=== PATIENT | female | born 2000 | race Asian ===

== ENCOUNTER 2020-08-26 09:58 | Emergency (ER) | payer OTHER ==
[~2020-08-26] VITALS: Ht 157.5 cm; Wt 49.0 kg
--- NOTE | 2020-08-26 11:00 | NUR ---
pt stated that she is cramping in her lower abd .pt has small spotting ,no bright red bleeding dr dixon at bedside aware .
[2020-08-26 11:36] VITALS: BP 111/84
== END 2020-08-26 11:40 | disposition home or self-care (01) ==
LOC: ER 10:00
DX: O26.91 Pregnancy related conditions, unspecified, first trimester (principal); R10.84 Generalized abdominal pain; Z3A.00 Weeks of gestation of pregnancy not specified
CPT/HCPCS: 36415; 84702; 99283

== ENCOUNTER 2023-01-26 14:50 | Emergency (ER) | payer OTHER, MEDICAID ==
[~2023-01-26] VITALS: Ht 157.5 cm; Wt 55.0 kg
[2023-01-26 14:52] VITALS: BP 132/78
[2023-01-26] MEDS ORDERED: CLIN300C70 PO (15:26)
== END 2023-01-26 15:44 | disposition home or self-care (01) ==
LOC: ER 14:51
DX: R59.0 Localized enlarged lymph nodes (principal)
CPT/HCPCS: 99283

== ENCOUNTER 2023-02-07 11:52 | Emergency (ER) | payer OTHER, MEDICAID ==
[~2023-02-07] VITALS: Ht 157.5 cm; Wt 53.6 kg
[~2023-02-07 11:52] MED LIST: CLIN300C70 PO
[2023-02-07 11:58] VITALS: BP 120/83
== END 2023-02-07 12:49 | disposition home or self-care (01) ==
LOC: ER 11:53
DX: R21 Rash and other nonspecific skin eruption (principal); Z79.899 Other long term (current) drug therapy
CPT/HCPCS: 99282